=== PATIENT | male | born 1970 | race Caucasian/White ===

== ENCOUNTER 2019-09-01 15:45 | Emergency (ER) | payer OTHER ==
--- NOTE | 2019-09-01 16:42 | RAD ---
Right wrist 3 views HISTORY: Injury. FINDINGS: Scaphoid waist is intact. Ulnar styloid is hypoplastic. Mild diffuse joint space narrowing. Mild osteophytosis. Tiny well-corticated ossification immediately lateral to the first carpometacarpal joint. Possibly an old ossific avulsion. Small synovial cysts scattered throughout the carpus and distal ulna. Favored to not represent an agg ressive erosion. No acute fracture or dislocation. Benign-appearing bone island within the distal radius. IMPRESSION : Mild osteoarthritic changes and other chronic-type findings. No acute osseous abnormalities are demonstrated.
== END 2019-09-01 17:45 | disposition home or self-care (01) ==
LOC: MADERS 15:45
DX: S60.211A Contusion of right wrist, initial encounter (principal); V47.5XXA Car driver injured in collision with fixed or stationary object in traffic accident, initial encounter